=== PATIENT | female | born 1965 | race Caucasian/White ===

== ENCOUNTER 2018-02-18 19:48 | Emergency (ER) | payer SELFPAY ==
[~2018-02-18] VITALS: Ht 167.6 cm; Wt 125.6 kg
[~2018-02-18 19:48] MED LIST: MOTRIN800 MG PO
[2018-02-18 20:13] LABS: HEMATOCRIT 39.4 % (36.0-46.0); HEMOGLOBIN 12.9 G/DL (11.9-15.5); MCHC 32.7 G/DL (30.0-36.0); MCV 88.5 FL (83-99); PLATELET COUNT 295 K/uL (156-360); RBC DIS.WIDTH-CV 13.5 % (11.8-14.6); RBC DIS.WIDTH-SD 43.6 % (39-53); RED BLOOD COUNT 4.45 M/uL (3.80-5.20); WHITE BLOOD COUNT 10.9 K/uL (4.1-10.2)
[2018-02-18 20:21] LABS: CHLORIDE 103 mEq/L (99-109); POTASSIUM 3.5 mEq/L (3.7-5.4); SODIUM 140 mEq/L (136-147)
[2018-02-18 20:23] LABS: GLUCOSE 91 mg/dL (70-99)
[2018-02-18 20:27] LABS: CREATININE 0.8 mg/dL (0.6-1.3); GFR ESTIMATE (CALCULATED) > 59 mL/min/
[2018-02-18 20:28] LABS: UREA NITROGEN (BUN) 9 mg/dL (9-23)
[2018-02-18 20:35] LABS: TROP-I INTERPRETATION NEGATIVE; TROPONIN-I < 0.01 ng/mL (0.0-0.30)
[2018-02-18] MEDS ORDERED: ZITHROMAX Z-PA250 MG PO (21:24)
[2018-02-18] MEDS ORDERED: MEDROL DOSEPAK4 MG PO (21:24)
[2018-02-18] MEDS ORDERED: TESSALON200 MG PO (21:24)
[2018-02-18 21:35] VITALS: BP 150/90
== END 2018-02-18 21:36 | disposition home or self-care (01) ==
LOC: EXP 19:48 → EME 19:48 → EXP 21:36
DX: J20.9 Acute bronchitis, unspecified (principal); R11.2 Nausea with vomiting, unspecified; R49.0 Dysphonia; F17.200 Nicotine dependence, unspecified, uncomplicated
CPT/HCPCS: 71046; 80048; 84484; 85027; 93005; 94640; 99281; 99285; J7512

== ENCOUNTER 2018-03-08 16:35 | Emergency (ER) | payer OTHER ==
[~2018-03-08] VITALS: Ht 167.6 cm; Wt 122.9 kg
[~2018-03-08 16:35] MED LIST changes: +MEDROL DOSEPAK4 MG PO; +TESSALON200 MG PO; +ZITHROMAX Z-PA250 MG PO
[2018-03-08] MEDS ORDERED: SYMBICORT60 INHALAT IH (16:47)
[2018-03-08] MEDS ORDERED: PROAIR HFA8.5 GM IH (16:47)
[2018-03-08 18:18] VITALS: BP 135/90
== END 2018-03-08 18:21 | disposition home or self-care (01) ==
LOC: EME 16:35
DX: J45.909 Unspecified asthma, uncomplicated (principal); Z87.891 Personal history of nicotine dependence
CPT/HCPCS: 94664; 99281; 99283

== ENCOUNTER 2018-04-07 16:24 | Emergency (ER) | payer SELFPAY ==
[~2018-04-07] VITALS: Ht 167.6 cm; Wt 124.5 kg
[~2018-04-07 16:24] MED LIST changes: +PROAIR HFA8.5 GM IH; +SYMBICORT60 INHALAT IH
[2018-04-07 19:04] VITALS: BP 161/107
== END 2018-04-07 19:04 | disposition home or self-care (01) ==
LOC: EME 16:24
DX: M72.2 Plantar fascial fibromatosis (principal); M77.31 Calcaneal spur, right foot; J45.909 Unspecified asthma, uncomplicated
CPT/HCPCS: 73630; 99281; 99284